=== PATIENT | female | born 1970 | race Caucasian/White ===

== ENCOUNTER 2023-07-11 17:19 | Emergency (ER) | payer SELFPAY ==
[~2023-07-11] VITALS: Ht 170.2 cm; Wt 100.0 kg
[2023-07-11 17:46] VITALS: BP 127/86; PULSE 86; RESP 16; TEMP 98.6; O2SAT 98
[2023-07-11] MEDS ORDERED: HYDROcodone-ACET 5/325MG TAB PO ONE (19:00)
[2023-07-11] MEDS ORDERED: ONDANSETRON ODT 4 MG TAB PO ONE (19:00)
[2023-07-11] MEDS: KETOROLAC TROMETH 60MG/2ML VIAL IM ONE ×2 (19:08→19:11)
[2023-07-11] MEDS ORDERED: LIDO5PAD8 EX ×3 (20:41→21:02)
[2023-07-11] MEDS ORDERED: CYCL-837 PO ×3 (20:41→21:02)
[2023-07-11] MEDS ORDERED: HYDR-4902 PO ×2 (20:47)
[2023-07-11 21:15] VITALS: O2SAT 98
[2023-07-12] MEDS ORDERED: HYDR-4902 PO (19:45)
== END 2023-07-11 22:29 | disposition home or self-care (01) ==
LOC: ER 17:19 → EDBD 17:19 → ER 21:15
DX: S39.012A Strain of muscle, fascia and tendon of lower back, initial encounter (principal); M54.42 Lumbago with sciatica, left side; X58.XXXA Exposure to other specified factors, initial encounter; Y93.89 Activity, other specified; Y92.89 Other specified places as the place of occurrence of the external cause; Y99.8 Other external cause status
CPT/HCPCS: 72131; 99284; Q0162; J1885